=== PATIENT | female | born 1970 | race African-American/Black ===

== ENCOUNTER 2016-12-11 05:40 | Inpatient (IN) | payer BC, OTHER ==
[~2016-12-11] VITALS: Ht 175.3 cm; Wt 99.8 kg
[~2016-12-11 05:40] MED LIST: FAMO40TA57 PO; HYDR-2678 PO; ONDA4TAB10 SL; OXYC-323 PO
[2016-12-11] MEDS: FENTANYL PF 100 MCG/2 ML VIAL. IV PRN ×5 (06:31→20:20)
[2016-12-11 06:35] LABS: BASO % 1 % (0-3); EOS % 2 % (0-3); HEMOGLOBIN 12.9 g/dL (12.0-15.5); LYMPH # 2.6 x10^3/uL (1.0-4.8); LYMPH % 34 % (24-48); MEAN CORPUSCULAR HEMOGLOBIN 26 pg (25-35); MEAN CORPUSCULAR HGB CONC 31 g/dL (31-37); MEAN CORPUSCULAR VOLUME 83 fL (79-100); MONO % 13 % (0-9); NEUT % 51 % (31-73); PLATELET COUNT 234 x10^3/uL (140-400); RED BLOOD COUNT 4.93 x10^6/uL (3.50-5.40); RED CELL DISTRIBUTION WIDTH 14.6 % (11.5-14.5); WHITE BLOOD COUNT 7.6 x10^3/uL (4.0-11.0)
[2016-12-11 06:46] LABS: CALCIUM 8.9 mg/dL (8.5-10.1); GFR 72.5; INR 1.1 (0.8-1.1); POTASSIUM 4.4 mmol/L (3.5-5.1); PROTHROMBIN TIME PATIENT 13.3 SEC (11.7-14.0)
[2016-12-11 06:51] LABS: ALBUMIN 3.7 g/dL (3.4-5.0); TOTAL BILIRUBIN 0.3 mg/dL (0.2-1.0); TOTAL PROTEIN 7.5 g/dL (6.4-8.2)
[2016-12-11] MEDS ORDERED: IOHEXOL 300 MG/ML 75 ML VIAL IV ONE (07:00)
[2016-12-11] MEDS ORDERED: CONTRAST GIVEN MC PRN (07:00)
--- NOTE | 2016-12-11 07:47 | RAD ---
CT of the abdomen and pelvis with contrast, 12/11/2016: History: Right upper quadrant pain Multidetector CT imaging was performed following an IV bolus injection of iodinated contrast material. No oral contrast material was administered for this exam. The gallbladder is surgically absent. There is no evidence of a hepatic mass or bile duct dilatation. No pancreatic abnormality is seen. The spleen is of normal size. No renal or adrenal abnormality is detected. The abdominal aorta is unremarkable. No abdominal or pelvic adenopathy is seen. The uterus is surgically absent. The bowel loops are not dilated. The cecum extends anteromedially to the midline. The appendix is not clearly delineated. No dilated appendix or pericecal inflammatory process is seen. No free fluid or free air is evident in the abdomen or pelvis. IMPRESSION: No acute abdominal or pelvic abnormality is detected.
--- NOTE | 2016-12-11 08:48 | PHYS DOC ---
Past Medical History Past Medical History: Other Additional Past Medical Histor: back pain and frequency on urination. Past Surgical History: Cholecystectomy, Hysterectomy, Other Additional Past Surgical Histo: knee sx Alcohol Use: None Drug Use: None Adult General Chief Complaint Chief Complaint: ABDOMINAL PAIN HPI HPI Patient is a 46 year old female who comes from home with the complaint of right upper quadrant abdominal pain which has kept her up all night. She's had the pain off and on since Friday. No exacerbating or alleviating factors. She had some nausea yesterday but has not had any today. No vomiting. No fever or chills. She had her gallbladder removed in February 2016 and this feels exactly like the pain she was having before that. The patient did have gallstones at the time. She denies liver problems, pancreatitis, kidney problems. She has had a hysterectomy and has one ovary. She does not have chronic medical problems. PCP none, she had always seen Dr. Membreno for her primary care and just had a hysterectomy last year. Review of Systems Review of Systems Constitutional: Denies fever or chills [] Eyes: Denies change in visual acuity, redness, or eye pain [] HENT: Denies nasal congestion or sore throat [] Respiratory: Denies cough or shortness of breath [] Cardiovascular: Denies chest pain GI: As in history of present illness : Denies dysuria or hematuria [] Musculoskeletal: Denies back pain or joint pain [] Integument: Denies rash or skin lesions [] Neurologic: Denies headache, focal weakness or sensory changes [] Current Medications Current Medications Current Medications Medications (Trade) Dose Ordered Sig/Avis Start Time Stop Time Status Last Admin Dose Admin Fentanyl Citrate (Fentanyl 2ml Vial) 50 mcg PRN Q15MIN PRN 12/11/16 06:30 12/12/16 06:29 12/11/16 08:46 50 MCG Info (Do NOT chart on this entry -- for MONITORING) 1 each PRN DAILY PRN 12/11/16 07:00 12/13/16 06:59 Iohexol (Omnipaque 300 Mg/ml) 75 ml 1X ONCE 12/11/16 07:00 12/11/16 07:01 DC 12/11/16 07:09 75 ML Allergies Allergies Allergies Coded Allergies Type Severity Reaction Last Updated Verified No Known Drug Allergies 04/04/16 No Physical Exam Physical Exam Constitutional: Well developed, well nourished, appears to be uncomfortable, slightly tearful, alert, mentating normally. HENT: Normocephalic, atraumatic, bilateral external ears normal, oropharynx moist, no oral exudates, nose normal. [] Eyes:, conjunctiva normal, no discharge. [] Neck: Normal range of motion, no stridor. [] Cardiovascular:Heart rate regular rhythm, no murmur [] Lungs & Thorax: Bilateral breath sounds clear to auscultation [] Abdomen: Bowel sounds normal, soft, nondistended, no masses, no pulsatile masses. Significant tender to palpation in the right upper quadrant, epigastrium , slightly less tender in the left upper quadrant. No lower quadrant abdominal tenderness. No rebound or guarding. Skin: Warm, dry, no erythema, no rash. [] Extremities: No tenderness, no cyanosis, no clubbing, ROM intact, no edema. [] Neurologic: Alert and oriented X 3, normal motor function, normal sensory function, no focal deficits noted. [] Current Patient Data Vital Signs Vital Signs Date Time Temp Pulse Resp B/P Pulse Ox O2 Delivery O2 Flow Rate FiO2 12/11/16 06:31 16 Room Air 12/11/16 06:01 98.0 83 144/72 99 98.0 Lab Values Laboratory Tests Test 12/11/16 05:48 White Blood Count 7.6x10^3/uL (4.0-11.0) Red Blood Count 4.93x10^6/uL (3.50-5.40) Hemoglobin 12.9g/dL (12.0-15.5) Hematocrit 41.0% (36.0-47.0) Mean Corpuscular Volume 83fL (79-100) Mean Corpuscular Hemoglobin 26pg (25-35) Mean Corpuscular Hemoglobin Concent 31g/dL (31-37) Red Cell Distribution Width 14.6% (11.5-14.5) H Platelet Count 234x10^3/uL (140-400) Neutrophils (%) (Auto) 51% (31-73) Lymphocytes (%) (Auto) 34% (24-48) Monocytes (%) (Auto) 13% (0-9) H Eosinophils (%) (Auto) 2% (0-3) Basophils (%) (Auto) 1% (0-3) Neutrophils # (Auto) 3.9x10^3uL (1.8-7.7) Lymphocytes # (Auto) 2.6x10^3/uL (1.0-4.8) Monocytes # (Auto) 1.0x10^3/uL (0.0-1.1) Eosinophils # (Auto) 0.1x10^3/uL (0.0-0.7) Basophils # (Auto) 0.0x10^3/uL (0.0-0.2) Prothrombin Time 13.3SEC (11.7-14.0) Prothrombin Time INR 1.1 (0.8-1.1) PTT 31SEC (24-38) Sodium Level 139mmol/L (136-145) Potassium Level 4.4mmol/L (3.5-5.1) Chloride Level 104mmol/L (98-107) Carbon Dioxide Level 24mmol/L (21-32) Anion Gap 11 (6-14) Blood Urea Nitrogen 9mg/dL (7-20) Creatinine 1.0mg/dL (0.6-1.0) Estimated GFR (Cockcroft-Gault) 72.5 BUN/Creatinine Ratio 9 (6-20) Glucose Level 104mg/dL (70-99) H Calcium Level 8.9mg/dL (8.5-10.1) Total Bilirubin 0.3mg/dL (0.2-1.0) Aspartate Amino Transferase (AST) 15U/L (15-37) Alanine Aminotransferase (ALT) 20U/L (14-59) Alkaline Phosphatase 56U/L (46-116) Total Protein 7.5g/dL (6.4-8.2) Albumin 3.7g/dL (3.4-5.0) Albumin/Globulin Ratio 1.0 (1.0-1.7) Lipase 163U/L (73-393) Laboratory Tests 12/11/16 05:48 Laboratory Tests 12/11/16 05:48 EKG EKG [] Radiology/Procedures Radiology/Procedures CT scan of the abdomen and pelvis with IV contrast was read by the radiologist. No acute findings. I discussed the CT results with the radiologist. He did get a good look at her right upper quadrant and biliary system, he does not see any evidence of a bile duct stone, there is no ductal dilatation. He did not recommend ultrasound or other imaging based on his reading of the CT scan after our consultation. [] Course & Med Decision Making Course & Med Decision Making Pertinent Labs and Imaging studies reviewed. (See chart for details) 46-year-old female who had cholecystectomy in February 2015 for cholecystitis with gallstones present. She has had no recurrence of symptoms whatsoever for many months, presents today with a three-day history of worsening right upper quadrant pain that feels like biliary colic to her. Lab evaluation including lipase and imaging do not reveal the cause of her pain today. I rechecked the patient after labs and CT scan results. She got some initial partial relief with IV fentanyl but her pain is coming back. She looks uncomfortable and is slightly tearful again. We will re-dose her with pain medicine and I believe she should be admitted for surgical consultation, serial exams and lab studies. She is agreeable to that plan. I spoke with Dr. Miguel, [facility], who will admit the patient. I wrote bridge orders. [] Dragon Disclaimer Dragon Disclaimer This electronic medical record was generated, in whole or in part, using a voice recognition dictation system. Departure Departure Impression: Primary Impression: Abdominal pain Disposition: ADMITTED INPATIENT Admitting Physician: Luis Miguel Condition: STABLE Referrals: CHINA LOVELL MD (PCP) ALFONSO COREA MD Dec 11, 2016 08:48
[2016-12-11] MEDS ORDERED: ONDANSETRON PF 4 MG/2 ML VIAL. IV PRN (09:00)
[2016-12-11 10:15] VITALS: BP 122/82
[2016-12-11] MEDS: IV NORMAL SALINE 1000ML BAG 1,000 ML IV SCH ×2 (10:52→20:27)
--- NOTE | 2016-12-11 11:55 | PDOC2 ---
GI CONSULT Reason For Consult: RUQ pain HPI: HPI: 46 y/o AA female w/ PMH significant for cholecystectomy for calculous cholecystitis and RUQ pain in 02/2016; IOC was WNL. She reports RUQ pain since after eating lunch (started on the drive home). Pain is similar to what she experienced w/ her "gallbladder attack." It occurs after eating but can also be bothersome at other times (in the middle of the night). She has had some nausea w/ one episode of vomiting. Her diet has been limited since pain began. H/o intermittent heartburn improved w/ H2 monica PRN. Occasional ( once weekly) NSAID use for back pain. H/o constipation controlled w/ increased water. No previous EGD or colonoscopy. Surgical history as below. PMH: PMH: GERD, back pain, cholecystectomy (w/ normal IOC), knee surgery as a child, right oophorectomy, hysterectomy, breast reduction FH: Family History: Cancer (breast, prostate), DM, Hypertension, Other ([place]) Social History: Smoke: No Drugs: None ROS: GEN: Denies fevers, chills, sweats HEENT: Denies blurred vision, sore throat CV: Denies chest pain RESP: Denies shortness of air, cough GI: Per HPI : Denies hematuria, dysuria ENDO: Denies weight changes NEURO: Denies confusion, dizziness MSK: Denies weakness, joint pain/swelling SKIN: Denies jaundice, pruritus VItals: Vitals: Vital Signs Date Time Temp Pulse Resp B/P Pulse Ox O2 Delivery O2 Flow Rate FiO2 12/11/16 10:45 18 Room Air 12/11/16 10:15 97.9 70 122/82 100 97.9 Labs: Labs: Laboratory Tests Test 12/11/16 05:48 White Blood Count 7.6x10^3/uL (4.0-11.0) Red Blood Count 4.93x10^6/uL (3.50-5.40) Hemoglobin 12.9g/dL (12.0-15.5) Hematocrit 41.0% (36.0-47.0) Mean Corpuscular Volume 83fL (79-100) Mean Corpuscular Hemoglobin 26pg (25-35) Mean Corpuscular Hemoglobin Concent 31g/dL (31-37) Red Cell Distribution Width 14.6% (11.5-14.5) Platelet Count 234x10^3/uL (140-400) Neutrophils (%) (Auto) 51% (31-73) Lymphocytes (%) (Auto) 34% (24-48) Monocytes (%) (Auto) 13% (0-9) Eosinophils (%) (Auto) 2% (0-3) Basophils (%) (Auto) 1% (0-3) Neutrophils # (Auto) 3.9x10^3uL (1.8-7.7) Lymphocytes # (Auto) 2.6x10^3/uL (1.0-4.8) Monocytes # (Auto) 1.0x10^3/uL (0.0-1.1) Eosinophils # (Auto) 0.1x10^3/uL (0.0-0.7) Basophils # (Auto) 0.0x10^3/uL (0.0-0.2) Prothrombin Time 13.3SEC (11.7-14.0) Prothromb Time International Ratio 1.1 (0.8-1.1) Activated Partial Thromboplast Time 31SEC (24-38) Sodium Level 139mmol/L (136-145) Potassium Level 4.4mmol/L (3.5-5.1) Chloride Level 104mmol/L (98-107) Carbon Dioxide Level 24mmol/L (21-32) Anion Gap 11 (6-14) Blood Urea Nitrogen 9mg/dL (7-20) Creatinine 1.0mg/dL (0.6-1.0) Estimated GFR (Cockcroft-Gault) 72.5 BUN/Creatinine Ratio 9 (6-20) Glucose Level 104mg/dL (70-99) Calcium Level 8.9mg/dL (8.5-10.1) Total Bilirubin 0.3mg/dL (0.2-1.0) Aspartate Amino Transf (AST/SGOT) 15U/L (15-37) Alanine Aminotransferase (ALT/SGPT) 20U/L (14-59) Alkaline Phosphatase 56U/L (46-116) Total Protein 7.5g/dL (6.4-8.2) Albumin 3.7g/dL (3.4-5.0) Albumin/Globulin Ratio 1.0 (1.0-1.7) Lipase 163U/L (73-393) Allergies: Coded Allergies: No Known Drug Allergies (Unverified , 04/04/16) Medications: Current Medications Medications (Trade) Dose Ordered Sig/Avis Route PRN Reason Start Time Stop Time Status Last Admin Dose Admin Fentanyl Citrate (Fentanyl 2ml Vial) 50 mcg PRN Q15MIN PRN IV PAIN GREATER THAN 3/10 12/11/16 06:30 12/12/16 06:29 12/11/16 08:46 Iohexol (Omnipaque 300 Mg/ml) 75 ml 1X ONCE IV 12/11/16 07:00 12/11/16 07:01 DC 12/11/16 07:09 Fentanyl Citrate 50 mcg 50 mcg PRN Q2HR PRN IV PAIN 12/11/16 09:00 12/12/16 08:59 12/11/16 10:45 Sodium Chloride (Iv Sodium Chloride 0.9% 1000ml Bag) 1,000 ml @ 100 mls/hr Q10H IV 12/11/16 08:53 12/12/16 08:52 12/11/16 10:52 Imaging: Imaging: CT A/P w/ IV contrast 12/11/16 IMPRESSION: No acute abdominal or pelvic abnormality is detected. PE: GEN: NAD HEENT: Atraumatic, PERRL LUNGS: CTAB HEART: RRR ABD: BS+, overweight, epigastric and RUQ tenderness to light palpation, some in LUQ EXTREMITY: No edema SKIN: No rashes, no jaundice NEURO/PSYCH: A & O 3 A/P: A/P: Upper abdominal pain s/p cholecystectomy -epigastrium/RUQ, similar to pain experienced prior to cholecystectomy -worse after eating, can also occur unrelated to meals -some n/v -labs, imaging unrevealing Heartburn -occasional, improved w/ H2 monica -no previous EGD Constipation -history of -controlled w/ increased water consumption, dietary changes CRC screen -average risk -- D/w Dr. Simeon - plan for EGD and colon tomorrow after prep. If unrevealing, consider SBS. D/w RN, GI lab. Clears today, NPO at 6:00 a.m. ISAURO HIGGINBOTHAM Dec 11, 2016 11:55
[2016-12-11] MEDS ORDERED: PEG 3350/NA SULF,BICARB,CL/KCL 4,000 ML SOLUTION. PO ONE (12:30)
[2016-12-11 13:29] LABS: NEG OBC UR NEG; POS OBC UR POS
[2016-12-11 15:00] VITALS: BP 124/79
[2016-12-11 19:05] VITALS: BP 133/87
[2016-12-11] MEDS ORDERED: MORPHINE SULFATE 2 MG/ML DISP.SYRIN. IV PRN (20:45)
[2016-12-11] MEDS ORDERED: MORPHINE SULFATE 4 MG/ML DISP.SYRIN. IV PRN (20:45)
--- NOTE | 2016-12-11 21:36 | HP ---
ADMIT DATE: 12/11/2016 CHIEF COMPLAINT: Abdominal pain. HISTORY OF PRESENT ILLNESS: The patient is a pleasant middle-aged female who was basically healthy, but she did have a laparoscopic cholecystectomy in February 2016 about 8 months ago. Basically, she presents with abdominal pain. She states it feels exactly when she had gallstones. I discussed the case with the ER physician. We are going to admit the patient and consult GI. She is going to get the EGD and colonoscopy tomorrow. PAST MEDICAL HISTORY: Cholecystectomy. ALLERGIES: None. FAMILY HISTORY: Hypertension. SOCIAL HISTORY: She does not drink, smoke or take drugs. MEDICATIONS: Reviewed, please refer to the MRAD. REVIEW OF SYSTEMS: GENERAL: No history of weight change, weakness or fevers. SKIN: No bruising, hair changes or rashes. EYES: No blurred, double or loss of vision. NOSE AND THROAT: No history of nosebleeds, hoarseness or sore throat. HEART: No history of palpitations, chest pain or shortness of breath on exertion. LUNGS: Denies cough, hemoptysis, wheezing or shortness of breath. GASTROINTESTINAL: She complains of abdominal pain in the right upper quadrant. GENITOURINARY: No history of frequency, urgency, hesitancy or nocturia. NEUROLOGIC: Denies history of numbness, tingling, tremor or weakness. PSYCHIATRIC: No history of panic, anxiety or depression. ENDOCRINE: No history of heat or cold intolerance, polyuria or polydipsia. EXTREMITIES: Denies muscle weakness, joint pain, pain on walking or stiffness. PHYSICAL EXAMINATION: VITAL SIGNS: Temperature afebrile, pulse 67, respirations 20, blood pressure 124/79. GENERAL: She is alert, cooperative, complaining of pain. HEART: Normal S1, S2. LUNGS: Clear. ABDOMEN: Soft, tender in the right upper quadrant. EXTREMITIES: No edema. SKIN: No rashes. PSYCHIATRIC: She is stable. VASCULAR: Good capillary refill. ENDOCRINE: No thyromegaly. LYMPHATICS: No cervical nodes. HEMATOPOIETIC: No bruising. LABORATORY DATA: White count 7, hemoglobin 12, platelets 234. Electrolytes normal. Liver function tests are normal. INR is normal at 1.1. Urine test is negative. CT of the abdomen negative. ASSESSMENT AND PLAN: Abdominal pain. The patient has been admitted. We have consulted GI. She is going for an EGD and colonoscopy in the morning. P.r.n. narcotics, IV fluids, p.r.n. antiemetics, continue home medicines. BECKY HUBBARD DO DR: JUSTINO/rohith JOB#: [id number] / [id number]
[2016-12-11 23:57] VITALS: BP 116/77
[2016-12-12] MEDS: ACETAMINOPHEN 325 MG TABLET. PO PRN ×2 (01:46→19:44)
[2016-12-12 03:47] VITALS: BP 128/86
[2016-12-12] MEDS: IV NORMAL SALINE 1000ML BAG 1,000 ML IV SCH (05:16)
[2016-12-12 07:00] VITALS: BP 134/87
[2016-12-12] MEDS ORDERED: IV RINGERS,LACTATED 1000ML 1,000 ML IV SCH ×2 (07:00→13:05)
--- NOTE | 2016-12-12 09:15 | PDOC ---
PROGRESS NOTES Chief Complaint Chief Complaint Abd Pain ASSESSMENT AND PLAN: 1. Abd pain: appreciate GI service input. planned scopes today 2. Pain control: adequate with current regimen Vitals Vitals Vital Signs Date Time Temp Pulse Resp B/P Pulse Ox O2 Delivery O2 Flow Rate FiO2 12/12/16 03:47 98.1 74 22 128/86 97 Room Air 98.1 Physical Exam General: Alert, Oriented X3, Cooperative, No acute distress Heart: Regular rate Lungs: Clear Abdomen: Soft, Other (TTP epigastrium/subxyphoid) Review of Systems Review of Systems pain very focal , sometimes severe, currently manageable Comment Review of Relevant I have reviewed the following items debby (where applicable) has been applied. Labs Laboratory Tests Test 12/11/16 05:48 12/11/16 05:49 White Blood Count 7.6x10^3/uL (4.0-11.0) Red Blood Count 4.93x10^6/uL (3.50-5.40) Hemoglobin 12.9g/dL (12.0-15.5) Hematocrit 41.0% (36.0-47.0) Mean Corpuscular Volume 83fL (79-100) Mean Corpuscular Hemoglobin 26pg (25-35) Mean Corpuscular Hemoglobin Concent 31g/dL (31-37) Red Cell Distribution Width 14.6% (11.5-14.5) Platelet Count 234x10^3/uL (140-400) Neutrophils (%) (Auto) 51% (31-73) Lymphocytes (%) (Auto) 34% (24-48) Monocytes (%) (Auto) 13% (0-9) Eosinophils (%) (Auto) 2% (0-3) Basophils (%) (Auto) 1% (0-3) Neutrophils # (Auto) 3.9x10^3uL (1.8-7.7) Lymphocytes # (Auto) 2.6x10^3/uL (1.0-4.8) Monocytes # (Auto) 1.0x10^3/uL (0.0-1.1) Eosinophils # (Auto) 0.1x10^3/uL (0.0-0.7) Basophils # (Auto) 0.0x10^3/uL (0.0-0.2) Prothrombin Time 13.3SEC (11.7-14.0) Prothromb Time International Ratio 1.1 (0.8-1.1) Activated Partial Thromboplast Time 31SEC (24-38) Sodium Level 139mmol/L (136-145) Potassium Level 4.4mmol/L (3.5-5.1) Chloride Level 104mmol/L (98-107) Carbon Dioxide Level 24mmol/L (21-32) Anion Gap 11 (6-14) Blood Urea Nitrogen 9mg/dL (7-20) Creatinine 1.0mg/dL (0.6-1.0) Estimated GFR (Cockcroft-Gault) 72.5 BUN/Creatinine Ratio 9 (6-20) Glucose Level 104mg/dL (70-99) Calcium Level 8.9mg/dL (8.5-10.1) Total Bilirubin 0.3mg/dL (0.2-1.0) Aspartate Amino Transf (AST/SGOT) 15U/L (15-37) Alanine Aminotransferase (ALT/SGPT) 20U/L (14-59) Alkaline Phosphatase 56U/L (46-116) Total Protein 7.5g/dL (6.4-8.2) Albumin 3.7g/dL (3.4-5.0) Albumin/Globulin Ratio 1.0 (1.0-1.7) Lipase 163U/L (73-393) Urine Test Negative (NEG) Medications Current Medications Fentanyl Citrate (Fentanyl 2ml Vial) 50 mcg PRN Q15MIN PRN IV PAIN GREATER THAN 3/10 Last administered on 12/11/16 08:46; Start 12/11/16 at 06:30; Stop at 06:29; Status DC Iohexol (Omnipaque 300 Mg/ml) 75 ml 1X ONCE IV Last administered on 12/11/16 07:09; Start 12/11/16 at 07:00; Stop 12/11/16 at 07:01; Status DC Info (Do NOT chart on this entry -- for MONITORING) 1 each PRN DAILY PRN MC SEE COMMENTS; Start 12/11/16 at 07:00; Stop 12/13/16 at 06:59 Ondansetron HCl (Zofran) 4 mg PRN Q8HRS PRN IV NAUSEA/VOMITING Last administered on 12/11/16 11:58; Start 12/11/16 at 09:00; Stop 12/12/16 at 08:59 ; Status DC Fentanyl Citrate 50 mcg 50 mcg PRN Q2HR PRN IV PAIN Last administered on 20:20; Start 12/11/16 at 09:00; Stop 12/12/16 at 08:59; Status DC Sodium Chloride (Iv Sodium Chloride 0.9% 1000ml Bag) 1,000 ml @ 100 mls/hr Q10H IV Last administered on 12/12/16 05:16; Start 12/11/16 at 08:53; Stop at 08:52; Status DC Sodium Cl/Sod Bicarb/Potass Cl/ PEG 4000 ml 4,000 ml 1X ONCE PO Last administered on 12/11/16 14:49; Start 12/11/16 at 12:30; Stop 12/11/16 at 12:31 ; Status DC Lactated Ringer's (Iv Lactated Ringers) 1,000 ml @ 50 mls/hr Q20H IV ; Start at 07:00; Stop 12/12/16 at 18:59 Morphine Sulfate 2 mg PRN Q2HR PRN IV PAIN SEVERE; Start 12/11/16 at 20:45 Morphine Sulfate 4 mg PRN Q2HR PRN IV PAIN SEVERE; Start 12/11/16 at 20:45 Acetaminophen (Tylenol) 650 mg PRN QID PRN PO MILD PAIN / TEMP Last administered on 12/12/16 01:46; Start 12/12/16 at 01:30 Active Scripts Active Percocet 5-325 Mg Tablet (Oxycodone/Acetaminophen) 1 Each Tablet 1-2 Tab PO Q4- 6HRS Reported Pepcid (Famotidine) 40 Mg Tablet 40 Mg PO DAILY Vitals/I & O Vital Sign - Last 24 Hours 12/11/16 12/11/16 12/11/16 12/11/16 10:15 10:15 10:30 10:45 Temp 97.9 97.9 97.9 97.9 Pulse 70 70 Resp 20 20 18 B/P 122/82 122/82 Pulse Ox 100 100 O2 Delivery Room Air Room Air Room Air Room Air 12/11/16 12/11/16 12/11/1617 14:45 15:00 19:05 20:00 Temp 97.4 97.7 97.4 97.7 Pulse 77 78 Resp 20 18 16 B/P 124/79 133/87 Pulse Ox 99 100 O2 Delivery Room Air Room Air Room Air Room Air 12/11/16 12/11/16 12/11/16 12/12/16 20:20 21:00 23:57 03:47 Temp 98.0 98.1 98.0 98.1 Pulse 78 74 Resp 16 16 16 22 B/P 116/77 128/86 Pulse Ox 98 97 O2 Delivery Room Air Room Air Room Air Room Air Intake and Output 12/11/16 12/11/16 12/12/16 15:00 23:00 07:00 Intake Total 450 ml 2989 ml 889 ml Output Total 300 ml 350 ml Balance 150 ml 2639 ml 889 ml MEREDITH TEIXEIRA MD Dec 12, 2016 09:15
--- NOTE | 2016-12-12 09:39 | PDOC ---
SURGICAL PROGRESS NOTE Subjective Pt with RUQ pain, but somewhat less Vital Signs Vital Signs Date Time Temp Pulse Resp B/P Pulse Ox O2 Delivery O2 Flow Rate FiO2 12/12/16 07:00 97.7 95 18 134/87 100 Room Air 97.7 I&O Intake and Output 12/12/16 07:00 Intake Total 4328 ml Output Total 650 ml Balance 3678 ml Intake Oral 2450 ml Other 1878 ml Output Urine Total 650 ml # Voids 2 # Bowel Movements 2 General: Alert, Oriented X3, Cooperative, No acute distress Abdomen: Soft, Other (TTP RUQ, epigastric) Labs Laboratory Tests Test 12/11/16 05:48 12/11/16 05:49 White Blood Count 7.6x10^3/uL (4.0-11.0) Red Blood Count 4.93x10^6/uL (3.50-5.40) Hemoglobin 12.9g/dL (12.0-15.5) Hematocrit 41.0% (36.0-47.0) Mean Corpuscular Volume 83fL (79-100) Mean Corpuscular Hemoglobin 26pg (25-35) Mean Corpuscular Hemoglobin Concent 31g/dL (31-37) Red Cell Distribution Width 14.6% (11.5-14.5) Platelet Count 234x10^3/uL (140-400) Neutrophils (%) (Auto) 51% (31-73) Lymphocytes (%) (Auto) 34% (24-48) Monocytes (%) (Auto) 13% (0-9) Eosinophils (%) (Auto) 2% (0-3) Basophils (%) (Auto) 1% (0-3) Neutrophils # (Auto) 3.9x10^3uL (1.8-7.7) Lymphocytes # (Auto) 2.6x10^3/uL (1.0-4.8) Monocytes # (Auto) 1.0x10^3/uL (0.0-1.1) Eosinophils # (Auto) 0.1x10^3/uL (0.0-0.7) Basophils # (Auto) 0.0x10^3/uL (0.0-0.2) Prothrombin Time 13.3SEC (11.7-14.0) Prothromb Time International Ratio 1.1 (0.8-1.1) Activated Partial Thromboplast Time 31SEC (24-38) Sodium Level 139mmol/L (136-145) Potassium Level 4.4mmol/L (3.5-5.1) Chloride Level 104mmol/L (98-107) Carbon Dioxide Level 24mmol/L (21-32) Anion Gap 11 (6-14) Blood Urea Nitrogen 9mg/dL (7-20) Creatinine 1.0mg/dL (0.6-1.0) Estimated GFR (Cockcroft-Gault) 72.5 BUN/Creatinine Ratio 9 (6-20) Glucose Level 104mg/dL (70-99) Calcium Level 8.9mg/dL (8.5-10.1) Total Bilirubin 0.3mg/dL (0.2-1.0) Aspartate Amino Transf (AST/SGOT) 15U/L (15-37) Alanine Aminotransferase (ALT/SGPT) 20U/L (14-59) Alkaline Phosphatase 56U/L (46-116) Total Protein 7.5g/dL (6.4-8.2) Albumin 3.7g/dL (3.4-5.0) Albumin/Globulin Ratio 1.0 (1.0-1.7) Lipase 163U/L (73-393) Urine Test Negative (NEG) Problem List Problems Medical Problems: (1) Abdominal pain Status: Acute Assessment/Plan abd pain agree with plans for imaging per GI will follow Problems: RAUL JARRETT MD Dec 12, 2016 09:39
[2016-12-12 11:00] VITALS: BP 133/87
[2016-12-12] MEDS ORDERED: FENTANYL PF 100 MCG/2 ML VIAL. IV PRN ×2 (13:15)
[2016-12-12] MEDS ORDERED: LIDOCAINE 1% 1 ML SYRINGE. ID PRN (13:15)
[2016-12-12] MEDS ORDERED: MIDAZOLAM HCL 2 MG/2 ML VIAL. IV PRN (13:15)
[2016-12-12] MEDS ORDERED: FENTANYL PF 100 MCG/2 ML VIAL. ONE (14:02)
[2016-12-12] MEDS ORDERED: PROPOFOL 40 ML IV ONE (14:03)
[2016-12-12] MEDS ORDERED: LIDOCAINE 2% PF Vial for OR 5 ML VIAL. ONE (14:03)
--- NOTE | 2016-12-12 14:39 | PDOC4 ---
Operative Note Operative Note EGD with bx Colonoscopy Meds propofol per anesthesia Pre-op dx abd pain Post-op dx multiple gastric ulcers S/p non-erosive gastritis internal hemorrhoids Plan Advance diet PPI therapy for 2 months with EGD at that time to confirm healing KRISTEN QUIGLEY MD Dec 12, 2016 14:39
[2016-12-12] MEDS ORDERED: PROPOFOL 20 ML IV ONE (14:50)
[2016-12-12] MEDS: PANTOPRAZOLE 40 MG TABLET. PO SCH (15:39)
[2016-12-12 19:00] VITALS: BP 133/88
--- NOTE | 2016-12-12 19:05 | CONS ---
DATE OF CONSULTATION: 12/11/2016 REFERRING PHYSICIANS: Dr. Simeon, Dr. Miguel, Dr. Mayra Silvestre and Dr. Erica Gloria. Thank you for this consult. CHIEF COMPLAINT: Right upper quadrant abdominal pain. DIAGNOSIS: Right upper quadrant abdominal pain. HISTORY OF PRESENT ILLNESS: This is a very pleasant 46-year-old female who I have previously met, she underwent laparoscopic cholecystectomy which was uncomplicated in 02/2016 and intraoperative cholangiogram was normal at that time. She reports just recently developing severe right upper quadrant abdominal pain after eating. She reports this is very similar to her previous cholecystitis pain. She also reports some associated nausea and vomiting. She reports some improvement with pain medicine, but continues to have pain. She is seen in her hospital room, appears to be uncomfortable. ALLERGIES: She has no known drug allergies. MEDICATIONS: Reviewed. PAST MEDICAL HISTORY: Reflux, back pain, obesity. PAST SURGICAL HISTORY: Cholecystectomy, knee surgery, hysterectomy, right oophorectomy, breast reduction. SOCIAL HISTORY: No tobacco, no significant alcohol use. FAMILY HISTORY: Noncontributory. REVIEW OF SYSTEMS: All systems reviewed and negative except for HPI. PHYSICAL EXAMINATION: GENERAL: Well-developed obese female, appearing uncomfortable. VITAL SIGNS: BMI is 32.5. She is afebrile. Vital signs within normal limits. HEENT: Normocephalic, anicteric sclerae. Oropharynx clear. NECK: Supple. CHEST: Bilateral chest excursion. ABDOMEN: Soft, nondistended, has some tenderness to palpation of the right upper quadrant area. EXTREMITIES: No clubbing, cyanosis or edema. LABORATORY DATA: Essentially unremarkable. A CT scan of her abdomen and pelvis is also unremarkable. IMPRESSION AND RECOMMENDATIONS: A 46-year-old female with right upper quadrant abdominal pain. Agree with admission and pain management, but also strongly agree with the workup planned per GI. I will certainly follow along for possible intervention. Thank you for allowing participation in the care of this very pleasant patient. RAUL JARRETT MD DR: MAURO/rohith JOB#: [id number] / [id number] ecc NAHOMY, MAYRA ERICA SNOW MD, SCOTT MD
[2016-12-12 23:51] VITALS: BP 124/69
[2016-12-13 03:44] VITALS: BP 136/84
[2016-12-13] MEDS: PANTOPRAZOLE 40 MG TABLET. PO SCH (06:34)
[2016-12-13 07:00] VITALS: BP 121/84
[2016-12-13] MEDS: ACETAMINOPHEN 325 MG TABLET. PO PRN (08:02)
--- NOTE | 2016-12-13 09:26 | PDOC ---
SURGICAL PROGRESS NOTE Subjective Pt feels better today, lori PO, interested in d/c Vital Signs Vital Signs Date Time Temp Pulse Resp B/P Pulse Ox O2 Delivery O2 Flow Rate FiO2 12/13/16 07:00 98.1 81 18 121/84 96 Room Air 98.1 12/12/16 14:40 2 I&O Intake and Output 12/13/16 07:00 Intake Total 850 ml Balance 850 ml Intake Oral 350 ml IV Total 500 ml # Voids 7 General: Alert, Oriented X3, Cooperative, No acute distress Abdomen: Soft, Other (mild TTP epigastric) Problem List Problems Medical Problems: (1) Abdominal pain Status: Acute Assessment/Plan gastric ulcers identified on EGD treatment per GI will sign off, but please call for questions Problems: RAUL JARRETT MD Dec 13, 2016 09:26
--- NOTE | 2016-12-13 09:43 | PDOC ---
PROGRESS NOTES Chief Complaint Chief Complaint Abd Pain ASSESSMENT AND PLAN: 1. Abd pain: EGD with gastric ulcers. PPI bid. carafate 2. Pain control: good. minimize narcotics 3. Dispo: home Vitals Vitals Vital Signs Date Time Temp Pulse Resp B/P Pulse Ox O2 Delivery O2 Flow Rate FiO2 12/13/16 07:00 98.1 81 18 121/84 96 Room Air 98.1 12/12/16 14:40 2 Physical Exam General: Alert, Oriented X3, Cooperative, No acute distress Heart: Regular rate Lungs: Clear Abdomen: Soft, Other (mild TTP epigastric) Review of Systems Review of Systems pain about a 3. ready to go home Comment Review of Relevant I have reviewed the following items debby (where applicable) has been applied. Medications Current Medications Fentanyl Citrate (Fentanyl 2ml Vial) 50 mcg PRN Q15MIN PRN IV PAIN GREATER THAN 3/10 Last administered on 12/11/16 08:46; Start 12/11/16 at 06:30; Stop at 06:29; Status DC Iohexol (Omnipaque 300 Mg/ml) 75 ml 1X ONCE IV Last administered on 12/11/16 07:09; Start 12/11/16 at 07:00; Stop 12/11/16 at 07:01; Status DC Info (Do NOT chart on this entry -- for MONITORING) 1 each PRN DAILY PRN MC SEE COMMENTS; Start 12/11/16 at 07:00; Stop 12/13/16 at 06:59; Status DC Ondansetron HCl (Zofran) 4 mg PRN Q8HRS PRN IV NAUSEA/VOMITING Last administered on 12/11/16 11:58; Start 12/11/16 at 09:00; Stop 12/12/16 at 08:59 ; Status DC Fentanyl Citrate 50 mcg 50 mcg PRN Q2HR PRN IV PAIN Last administered on 20:20; Start 12/11/16 at 09:00; Stop 12/12/16 at 08:59; Status DC Sodium Chloride (Iv Sodium Chloride 0.9% 1000ml Bag) 1,000 ml @ 100 mls/hr Q10H IV Last administered on 12/12/16 05:16; Start 12/11/16 at 08:53; Stop at 08:52; Status DC Sodium Cl/Sod Bicarb/Potass Cl/ PEG 4000 ml 4,000 ml 1X ONCE PO Last administered on 12/11/16 14:49; Start 12/11/16 at 12:30; Stop 12/11/16 at 12:31 ; Status DC Lactated Ringer's (Iv Lactated Ringers) 1,000 ml @ 50 mls/hr Q20H IV Last administered on 12/12/16 13:09; Start 12/12/16 at 07:00; Stop 12/12/16 at 15:41 ; Status DC Morphine Sulfate 2 mg PRN Q2HR PRN IV PAIN SEVERE; Start 12/11/16 at 20:45 Morphine Sulfate 4 mg PRN Q2HR PRN IV PAIN SEVERE; Start 12/11/16 at 20:45 Acetaminophen (Tylenol) 650 mg PRN QID PRN PO MILD PAIN / TEMP Last administered on 12/13/16 08:02; Start 12/12/16 at 01:30 Midazolam HCl (Versed) 2 mg PRN 1X PRN IV PRIOR TO PROCEDURE; Start 12/12/16 at 13:15; Stop 12/13/16 at 13:14 Fentanyl Citrate (Fentanyl 2ml Vial) 25 mcg PRN Q5MIN PRN IV X 2 DOSES FOR PAIN ; Start 12/12/16 at 13:15; Stop 12/13/16 at 13:14 Fentanyl Citrate 50 mcg 50 mcg PRN Q5MIN PRN IV X 2 DOSES FOR PAIN; Start 12/12 at 13:15; Stop 12/13/16 at 13:14 Lactated Ringer's (Iv Lactated Ringers) 1,000 ml @ 125 mls/hr Q8H IV ; Start at 13:05; Stop 12/12/16 at 15:41; Status DC Lidocaine HCl 2 ml 1X PRN PRN ID IV START; Start 12/12/16 at 13:15; Stop at 13:14 Fentanyl Citrate 100 mcg 100 mcg STK-MED ONCE .ROUTE ; Start 12/12/16 at 14:02; Stop 12/12/16 at 14:03; Status DC Propofol (Diprivan) 40 ml @ As Directed STK-MED ONCE IV ; Start 12/12/16 at 14: 03; Stop 12/12/16 at 14:04; Status DC Lidocaine HCl (Lidocaine Pf 2% Vial) 5 ml STK-MED ONCE .ROUTE ; Start 12/12/16 at 14:03; Stop 12/12/16 at 14:04; Status DC Pantoprazole Sodium 40 mg 40 mg DAILYAC PO Last administered on 12/13/16t 06:34 ; Start 12/12/16 at 15:00; Stop 02/07/17 at 14:59 Propofol (Diprivan) 20 ml @ As Directed STK-MED ONCE IV ; Start 12/12/16 at 14: 50; Stop 12/12/16 at 14:51; Status DC Active Scripts Active Percocet 5-325 Mg Tablet (Oxycodone/Acetaminophen) 1 Each Tablet 1-2 Tab PO Q4- 6HRS Reported Pepcid (Famotidine) 40 Mg Tablet 40 Mg PO DAILY Vitals/I & O Vital Sign - Last 24 Hours 12/12/16 12/12/16 12/12/16 12/12/16 11:00 13:00 13:08 14:08 Temp 98.8 98.4 98.8 98.4 Pulse 66 75 75 Resp B/P 133/87 Pulse Ox 100 99 99 O2 Delivery Room Air Room Air Room Air O2 Flow Rate 2 12/12/16 12/12/16 12/12/16 12/12/16 14:40 14:55 15:10 19:00 Temp 98.2 100.2 98.2 100.2 Pulse 85 85 70 95 Resp B/P 101/68 107/66 110/60 133/88 Pulse Ox 96 96 96 99 O2 Delivery Room Air Room Air Room Air Room Air O2 Flow Rate 2 12/12/16 12/12/16 12/13/16 12/13/16 19:47 23:51 03:44 07:00 Temp 99.1 97.9 98.1 99.1 97.9 98.1 Pulse 100 74 81 Resp 18 B/P 124/69 136/84 121/84 Pulse Ox 94 97 96 O2 Delivery Room Air Room Air Room Air Room Air Intake and Output 12/12/16 12/12/16 12/13/16 15:00 23:00 07:00 Intake Total 850 ml Balance 850 ml MEREDITH TEIXEIRA MD Dec 13, 2016 09:43
[2016-12-13] MEDS ORDERED: OXYC-323 PO (10:24)
[2016-12-13] MEDS ORDERED: PANT40TA5 PO (10:24)
[2016-12-13] MEDS ORDERED: SUCR1TAB29 PO (10:24)
--- NOTE | 2016-12-13 10:25 | DISCH ---
DISCHARGE INSTRUCTIONS Condition on Discharge Condition on Discharge: Stable Activity After Discharge Activity Instructions for Disc: No restrictions Diet after Discharge Diet after Discharge: Brianna Contacting the DR. after DC Call your doctor for: If your condition worsens Follow-Up Follow up with: PCP in 1-2 weeks MEREDITH TEIXEIRA MD Dec 13, 2016 10:25
--- NOTE | 2016-12-13 11:42 | PDOC ---
Subjective: Subjective: Feeling better. Tolerating diet. Less RUQ/epigastric pain. No n/v. Ready to go home. Breathing was tight after EGD but better today. Asks for a note for work. Objective: Vital Signs: Vital Signs Date Time Temp Pulse Resp B/P Pulse Ox O2 Delivery O2 Flow Rate FiO2 12/13/16 07:00 98.1 81 18 121/84 96 Room Air 98.1 12/12/16 14:40 2 Imaging: EGD and colonoscopy 12/12/16: multiple gastric ulcers s/p biopsy, non-erosive gastritis, internal hemorrhoids PE: GEN: NAD LUNGS: CTAB HEART: RRR ABD: much less tender NEURO/PSYCH: A & O 3 A/P: Upper abdominal pain - improved Gastric ulcers -- Continue PPI. Follow-up re: path and for repeat EGD in ~2 months to confirm healing. DC ok per GI. ISAURO HIGGINBOTHAM Dec 13, 2016 11:42
--- NOTE | 2016-12-16 16:40 | PATHOLOGY ---
PATHOLOGY REPORT * * * * * * * * FINAL DIAGNOSIS: Gastric biopsies, gastric ulcers: - Chronic gastritis with focal fibrosis of lamina propria and mild acute inflammation. COMMENT: Sections of the gastric antral biopsy show mild to moderate chronic inflammation with focal fibrosis of lamina propria associated with dropout of gastric glands and mild acute inflammation. An immunoperoxidase stain for Helicobacter is obtained. No Helicobacter organisms are identified. There is no evidence of malignancy. (JPM:mgr; d/t: 12/16/16) Special Stain Performed: Immunoperoxidase stain for Helicobacter (A1) REPORT ELECTRONICALLY SIGNED BY: Ritesh Cameron M.D. DATE/TIME: 12/16/2016 16:39 * * * * * * * * GROSS PATHOLOGY: Received in formalin labeled "Vy Romero and bx gastric ulcers," are 4 segments of fernandez soft tissue measuring 1.5 x 0.3 x 0.2 cm in aggregate dimensions and ranging from 0.2 to 0.5 cm in maximum dimension. The specimen is submitted entirely in cassette A1. (TTL; 12/13/2016) INITIAL CPT CODE(S): A; 82891, 02655 Professional services performed by [facility] [place] [address] Technical services performed by [facility] at [address] [place] [address], [facility], [place] [address] [address]. SPECIMEN(S) RECEIVED: A.Biopsy gastric ulcers CLINICAL HISTORY: RUQ abdominal pain; gastric ulcers PATIENT: VY ROMERO /AGE: 1008/24/1970 (Age: 46) PATIENT #: [id number] ALT CASE #: SPECIMEN COLLECTION DATE: 12/12/2016 SPECIMEN RECEIVED DATE: 12/13/2016 [facility] - [address] [place] [address] - PHONE: [phone] * * * END OF REPORT * * *
== END 2016-12-13 11:24 | disposition home or self-care (01) | DRG 384 ==
LOC: ER 05:40 → 4 NORTH 08:52
PROVIDERS: ADMIT Internal Medicine; ATTEND Internal Medicine
PROC: 0DJD8ZZ Inspection of Lower Intestinal Tract, Via Natural or Artificial Opening Endoscopic (ICD-10-PCS; principal; 2016-12-12 14:00)
PROC: 0DB68ZX Excision of Stomach, Via Natural or Artificial Opening Endoscopic, Diagnostic (ICD-10-PCS; 2016-12-12 14:00)
DX: K25.9 Gastric ulcer, unspecified as acute or chronic, without hemorrhage or perforation (principal); K21.9 Gastro-esophageal reflux disease without esophagitis; K29.70 Gastritis, unspecified, without bleeding; K64.8 Other hemorrhoids; Z80.3 Family history of malignant neoplasm of breast; Z82.49 Family history of ischemic heart disease and other diseases of the circulatory system; Z83.3 Family history of diabetes mellitus; Z90.49 Acquired absence of other specified parts of digestive tract; Z90.710 Acquired absence of both cervix and uterus
CPT/HCPCS: 36415; 74177; 80053; 81025; 83690; 85027; 85610; 85730; 96374; J2405; J2704; J3010; J7030; J7120; Q9967; 99285-25